=== PATIENT | male | born 2000 | race Caucasian/White ===

== ENCOUNTER 2019-05-09 16:52 | Emergency (ER) | payer OTHER, SELFPAY ==
[2019-05-09 17:15] VITALS: BP 156/82; PULSE 104; RESP 16; TEMP 37.1; O2SAT 96; BMI 26.3
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
--- NOTE | 2019-05-09 17:32 | XR_ITS ---
WS: [id number] RIGHT KNEE: 3 VIEW(S) TECHNIQUE: AP, oblique(s) and lateral. HISTORY: pain COMPARISON: None available. No fracture or dislocation. No joint space narrowing or osteophytes. No joint effusion. No soft tissue abnormality. XR/XR knee RT 3V* [id number] IMPRESSION: Normal RIGHT knee.
[2019-05-09 18:45] VITALS: BP 139/83; PULSE 75; RESP 16
--- NOTE | 2019-05-11 13:46 | DCPLANNER ---
field care manager had message to schedule a follow up appointment for patient with ortho. field care manager called the ortho clinic, spoke with Pat, gave clinic patients information. field care manager was told that patients information would be printed and reviewed. Clinic will call correctional counselor/case manager and patient with appointment information.
--- NOTE | 2019-05-13 11:03 | DCPLANNER ---
Patient had an appointment scheduled for 05.11.19 with ortho, patient did attend the appointment.
== END 2019-05-09 18:49 | disposition home or self-care (01) ==
PROVIDERS: Emergency Provider Emergency Medicine; Family Provider Physician Assistant
DX: S86.911A Strain of unspecified muscle(s) and tendon(s) at lower leg level, right leg, initial encounter (principal); S30.810A Abrasion of lower back and pelvis, initial encounter; V86.99XA Unspecified occupant of other special all-terrain or other off-road motor vehicle injured in nontraffic accident, initial encounter
CPT/HCPCS: 29530; 73562; 99283; E0114

== ENCOUNTER 2019-06-02 16:28 | Outpatient (CLI) | payer OTHER, SELFPAY ==
--- NOTE | 2019-06-02 16:45 | MR_ITS ---
WS: [id number] MRI RIGHT KNEE NONCONTRAST TECHNIQUE: Axial PD, coronal PD fat sat, coronal PD, sagittal PD, and sagittal PD fat-sat images obta ined. CLINICAL INFORMATION: Pain COMPARISON: None. FINDINGS: Some images degraded by patient motion. Irregularity with T2 signal abnormality involving the anterior cruciate ligament with partial intrasu bstance tear. Some normal fibers are visualized intact. T2 signal abnormality worse involving the dis seun tibial insertion. Posterior cruciate ligament is intact. Distal quadriceps and patella tendons ar e intact. Radial tear involving the posterior horn medial meniscus somewhat difficult to evaluate due to motion . This extends to the articular surface. T2 signal abnormality involving the medial collateral ligame nt with associated edema. MCL appears grossly intact. Findings consistent with partial intrasubstance tear and ligamentous injury. Normal lateral collateral ligament. Patella is normal in appearance. Normal patella cartilage. Normal popliteal fossa. MR/MR knee RT wo con* [id number] IMPRESSION: 1. Partial intrasubstance tear involving the ACL with signal abnormality worse along the distal insertion. 2. Normal posterior cruciate ligament. 3. Suggestion of tiny radial tear involving the posterior horn medial meniscus extending to the articular surface. Images degraded by motion in this area. 4. MCL ligamentous injury with intrasubstance partial tear and edema along the superficial and deep fibers. MCL is grossly intact.
== END 2019-06-02 16:29 | disposition home or self-care (01) ==
LOC: RADSHAW 16:33
PROVIDERS: Family Provider Physician Assistant; PCP Physician Assistant; Visit Provider Orthopaedic Surgery
DX: S83.421A Sprain of lateral collateral ligament of right knee, initial encounter (principal); X58.XXXA Exposure to other specified factors, initial encounter; M25.561 Pain in right knee
CPT/HCPCS: 73721

== ENCOUNTER 2019-12-06 02:07 | Emergency (ER) | payer OTHER, SELFPAY ==
[2019-12-06 02:20] VITALS: BP 126/69; PULSE 88; RESP 14; TEMP 36.9; O2SAT 98; BMI 27.1
--- NOTE | 2019-12-06 02:30 | ED_ITS ---
HPI - Abdominal Pain General: Chief Complaint: Abdominal Pain Stated Complaint: abd sharp pain for about a week Time Seen by Provider: 12/06/19 02:26 Source: patient Mode of arrival: ambulatory Limitations: no limitations History of Present Illness: HPI narrative: Isaiah is a 19-year-old male who comes in complaining of 1 weeks history of upper abdominal pain. He states the pain is all across the upper half of his upper abdomen. It is been intermittent in nature but waxing and waning over the past week. He said associated nausea but has not vomited. He denies any diarrhea or constipation. Patient states sometimes physically exerting himself makes things worse and rest makes it better. He does not describe any chest pain or shortness of breath. Patient has not had any fevers or chills. He does not describe any urinary symptoms. Associated Symptoms: Denies chills, coffee ground emesis, constipation, GI cramping, diarrhea, dysuria, fever(s), heartburn, hematochezia, hematuria, hematemesis, melena, syncope and vomiting Review of Systems Const: Denies: fever(s), chills, body aches, fatigue, malaise or diaphoresis Eyes: Denies: change in vision, blurry vision, photophobia, eye discomfort, eye discharge, eye redness or yellow eyes ENMT: Denies: throat pain, odynophagia, hoarseness, swelling of lips/tongue, ear or mastoid pain, ear discharge, change in hearing or nasal discharge Card: Denies: chest pain, palpitations, irregular heart rhythm, edema, lightheadedness, syncope, pre-syncope, dyspnea on exertion or orthopnea Resp: Denies: dyspnea, productive cough, non-productive cough, wheezing, hemoptysis or chest congestion GI: Reports: abdominal pain; Denies: vomiting, hematemesis, coffee ground emesis, heartburn, diarrhea, constipation, GI cramping, hematochezia or melena : Denies: flank pain, dysuria, urinary frequency, urinary urgency or hematuria Musc: Denies: neck pain, back pain, extremity pain, extremity swelling, joint pain, joint swelling, joint redness, joint warmth or joint stiffness Skin/Breast: Denies: rash, pruritus, erythema, skin pain or skin tenderness Neuro: Denies: headache(s), numbness in extremities, weakness in extremities, sensory changes, lack of coordination, difficulty walking, dizziness, vertigo, confusion, Slurred speech present or seizure-like activity Mariano/Lymph: Denies: easy bruising, easy bleeding, petechiae, purpura or enlarged lymph nodes All/Imm: Denies: urticaria, throat swelling, tongue swelling, facial swelling or acute wheezing PFSH ED PFSH: Medical History (Updated 12/06/19 @ 04:06 by Lou Wick) Migraines Surgical History (Updated 12/06/19 @ 02:33 by Lou Wick) S/P cholecystectomy Social History Smoking and tobacco status: never smoked Physical Exam Const: COMMON NORMALS: no acute distress, patient oriented x3, no limitations and alert GENERAL APPEARANCE: cooperative HENMT: COMMON NORMALS: normocephalic, atraumatic, external ears normal, EAC's normal and Normal external nose present HEAD & SCALP: normal to inspection, normocephalic and atraumatic FACE & SINUS: normal facial exam and face symmetric NOSE: Normal external nose present and Normal nares present EXTERNAL EAR: Yes external ears normal EXTERNAL AUDITORY CANAL: EAC's normal MOUTH: Normal oral and palatal mucosa present, lip normal and tongue normal Eye: COMMON NORMALS: Equal, round and reactive pupils present and conjunctivae normal GENERAL EYE: appearance normal, both eyes and all related structures ALIGNMENT: Yes alignment normal PERIORBITAL: periorbital findings normal EYELID: eyelids normal CONJUNCTIVA: Yes conjunctivae normal SCLERA: sclerae normal PUPIL: Yes Equal, round and reactive pupils present Neck/C-Spine: COMMON NORMALS: full ROM, no lymphadenopathy, supple, no meningeal signs and no JVD GENERAL: Yes normal visual inspection and Yes trachea midline Chest: COMMONS NORMALS: normal inspection of the chest and normal palpation of entire chest wall Resp: COMMON NORMALS: normal respiratory effort, No retractions, No use of accessory muscles and clear to auscultation bilaterally EFFORT & INSPECTION: Yes able to speak in complete sentences and Yes symmetric chest movement AUSCULTATION: clear to auscultation bilaterally, no crackles, no rales, no rhonchi and no wheezes Cardio: COMMON NORMALS: no JVD, regular rate, regular rhythm, S1 normal heart sound present and S2 normal heart sound present RATE: regular rate RHYTHM: regular rhythm HEART SOUNDS: S1 normal heart sound present, S2 normal heart sound present, no click, no gallops, no murmurs and no rubs GI: COMMON NORMALS: Soft to palpation and No hepatosplenomegaly present PALPATION: Yes Soft to palpation, No Tenderness to palpation present (GI), No Guarding due to palpation present (GI), No Rigid due to palpation, Yes No hepatosplenomegaly present, No Hernia present, No Palpable mass present and No Pulsatile mass present : COMMON NORMALS: Yes no CVA tenderness BLADDER/KIDNEY EXAM: Yes no CVA t enderness Back/Pelvis: COMMON NORMALS: no CVA tenderness, thoracic and lumbar spine normal to inspection, no thoracic nor lumbar tenderness and thoraco-lumbar ROM normal Extremity: COMMON NORMALS: normal to inspection, full ROM, capillary refill normal, no joint enlargement, no clubbing, cyanosis or edema and no calf tenderness Neuro: COMMON NORMALS: patient oriented x3, CN's II-XII intact bilaterally, moves all extremities, no focal motor deficits and no sensory deficits noted SENSORIUM/ORIENTATION: Yes alert MENINGEAL SIGNS: Yes no meningeal signs SPEECH: speech normal Psych: COMMON NORMALS: mental status grossly normal, Normal thought process p resent, cooperative, normal affect, speech normal and activity/motor behavior normal SPEECH: Yes normal speech THOUGHT PROCESS: Normal thought process present Skin: COMMON NORMALS: no rashes or lesions noted, turgor normal, no jaundice, no petechiae and no mottling GENERAL SKIN EXAM: no rashes or lesions noted and turgor normal Course Vital Signs: Vital signs: Vital Signs Temperature 98.4 F 12/06/19 02:20 Pulse Rate 98 12/06/19 03:36 Respiratory Rate 14 12/06/19 03:36 Blood Pressure 132/88 12/06/19 03:36 Pulse Oximetry 98 12/06/19 03:36 MDM - Abdominal Pain MDM Narrative: Medical decision making narrative: 403 -patient is feeling better and is ready to go home. CT scan is unremarkable as well as his lab work. He may have a mild case of mesenteric adenitis. This time though he is ready to go. If his urinalysis comes back normal I will discharge him home. Lab Data: Attestation: I reviewed the patient's lab results. Labs: Lab Results 12/06/19 12/06/19 12/06/19 Range/Units 02:36 02:36 02:36 WBC 6.9 (4.5-13.0) 10^3/ uL RBC 5.62 H (4.1-5.3) 10^6/u L Hgb 15.5 (11.7-16.6) g/dL Hct 46.5 (42.0-52.0) % MCV 82.7 (80-94) fL MCH 27.6 L (28.0-34.0) pg MCHC 33.3 (30.0-36.0) g/dL RDW 11.9 L (12.1-15.1) % Plt Count 263 (130-400) 10^3/c mm MPV 10.2 (7.4-10.4) fL Neut % (Auto) 39.3 % Lymph % (Auto) 38.5 % Arroyo % (Auto) 9.8 % Eos % (Auto) 11.5 % Baso % (Auto) 0.6 % Neut # (Auto) 2.69 (1.8-8.0) 10^3/u L Lymph # (Auto) 2.6 (1.5-6.5) 10^3/u L Arroyo # (Auto) 0.7 (0.2-0.9) 10^3/u L Eos # (Auto) 0.8 (0.0-0.8) 10^3/u L Baso # (Auto) 0.0 (0.0-0.1) 10^3/u L Nucleated RBC % (a uto) 0 % Nucleated RBCs # 0.0 /100WBC Sodium 140 (136-145) mmol/L Potassium 3.9 (3.5-5.1) mmol/L Chloride 103 (98-107) mmol/L Carbon Dioxide 25 (22-29) mmol/L Anion Gap 15.9 (5-19) BUN 12 (6-20) mg/dL Creatinine 0.7 (0.7-1.2) mg/dL GFR Calculation 143.8 H (90-130) mL/min Glucose 97 (65-115) mg/dL Calculated Osmolal ity 286 (285-295) mOsm/k g Calcium 9.9 (8.5-10.5) mg/dL Total Bilirubin 0.3 (0.15-1.2) mg/dL AST 22 (0-40) U/L ALT 27 (0-41) U/L Alkaline Phosphata se 114 (40-130) IU/L Total Protein 7.3 (6.6-8.7) g/dL Albumin 4.5 (3.5-5.2) g/dL Globulin 2.8 (1.3-4.6) g/dL Lipase 23 (13-60) U/L H. pylori IgG Anti body Negative (Negative) Imaging Data ^: CT Abd/Pel: Radiologist's impression: [place] [address] CT Scan Report Signed Patient: Abbie More #: [id number] : 2000Acct#:[id number] Age/Sex: 19 / MADM Date: 12/06/19 Loc: ERRoom/Bed: Attending Dr: Ordering Provider/Ordering MD: Lou Wick DO Date of Service: 12/06/19 Procedure(s): CT abdomen pelvis w con* [id number] Accession Number(s): [id number] Report Number: [id number] PROCEDURE INFORMATION: Exam: CT Abdomen And Pelvis With Contrast Exam date and time: 12/06/2019 2:57 AM Age: 19 years old Clinical indication: Abdominal pain; Prior surgery; Surgery date: 6+ months; Surgery type: Gallbladder; Patient HX: Epigastric pain x 1 wk TECHNIQUE: Imaging protocol: Computed tomography of the abdomen and pelvis with intravenous contrast. Radiation optimization: All CT scans at this facility use at least one of these dose optimization techniques: automated exposure control; mA and/or kV adjustment per patient size (includes targeted exams where dose is matched to clinical indication); or iterative reconstruction. Contrast material: OMNIPAQUE 300; Contrast volume: 95 ml; Contrast route: INTRAVENOUS (IV); COMPARISON: No relevant prior studies available. RADIATION DOSE METRICS: Total DLP (mGy-cm): 970.9 FINDINGS: Liver: Unremarkable liver. Gallbladder and bile ducts: Cholecystectomy. No biliary ductal dilatation. Pancreas: Unremarkable pancreas. Spleen: No splenomegaly. Adrenals: No mass. Kidneys and ureters: 5 mm focus of decreased density in the margin of the left upper renal pole. No hydronephrosis. Stomach and bowel: Unremarkable. No obstruction. No apparent mucosal thickening. Appendix: Normal appendix. Intraperitoneal space: No free air. Vasculature: Unremarkable. No abdominal aortic aneurysm. Lymph nodes: Numerous slightly prominent mesenteric nodes. No enlarged nodes elsewhere. Bladder: Unremarkable as visualized. Reproductive: Unremarkable as visualized. Bones/joints: Old slight compression fractures. Degeneration of several discs. Soft tissues: Minimal left inguinal hernia containing fat. CT/CT abdomen pelvis w con* [id number] IMPRESSION: Prominent mesenteric nodes, significance unclear. No acute findings elsewhere. Other findings detailed above. Radiation Dose CTDIVOL = (mGy): DLP = 970.9 (mGy-cm) Dictated By:Jen Shaffer MD Signed By:Jen Shafferigned Date/Time:12/06/19356 DD/ 4 Discharge Plan Discharge Patient Disposition: Home Clinical Impression: Nonspecific mesenteric adenitis Abdominal pain Qualifiers: Abdominal location: upper abdomen, unspecified Qualified Code(s): R10.10 - Upper abdominal pain, unspecified Condition: Stable Prescriptions: No Action ondansetron HCl 4 mg tablet 4 mg PO PRN RF: 0 Protein Nutritional Shake Liquid 1 ea PO DAILY RF: 0 Symbicort 160-4.5 mcg/actuation HFA aerosol inhaler 2 puff INHALATION BID RF: 0 Pre-Workout Shakes See Rx Instructions .ROUTE .COMPLEX RF: 0 Discharge Orders: Discharge Order (Routine); Ordered 12/06/19 Ordered By: Lou Wick Referrals: Yu Benavides PA [Primary Care Provider] - 1-3 days Discharge Diet: Advance as tolerated Discharge Activity: Increase activity as tolerated Patient Instructions: Abdominal Pain (ED) Activity Restrictions/Additional Instructions: Please return to the ER immediately for any of the signs or symptoms listed on your discharge instruction sheets, worsening/changing of your symptoms, you are not getting better as quickly as expected, or for ANY other cause or concerns. If your abdominal pain persists beyond another 8 to 12 hours please return to the ER for recheck. Return sooner if your pain worsens, he develop a fever, he develop vomiting, or for any other cause for concern. Be certain to follow-up with Yu Benavides for recheck this week. Coding Level of Care Code ED Freezing Room Worker for Chg Fwd Exam Comprehensive
[2019-12-06 02:49] VITALS: RESP 16; O2SAT 97
[2019-12-06] MEDS: pantoprazole 40 mg SDV 80 MG IVP (02:49)
[2019-12-06] MEDS: morphine 4 mg/mL SDV 1 mL IVP (02:49)
[2019-12-06] MEDS: ondansetron 2 mg/ML SDV 2 mL 4 MG IVP (02:50)
[2019-12-06 03:01] VITALS: BP 113/73; PULSE 74; RESP 16; O2SAT 98
[2019-12-06 03:17] LABS: Basophils % 0.6 %; Eosinophils # 0.8 10^3/uL (0.0-0.8); Eosinophils % 11.5 %; Hematocrit 46.5 % (42.0-52.0); Hemoglobin 15.5 g/dL (11.7-16.6); Lymphocytes # 2.6 10^3/uL (1.5-6.5); Lymphocytes % 38.5 %; Mean Corpuscular HGB Conc 33.3 g/dL (30.0-36.0); Mean Corpuscular Hemoglobin 27.6 pg (28.0-34.0); Mean Corpuscular Volume 82.7 fL (80-94); Mean Platelet Volume 10.2 fL (7.4-10.4); Monocytes # 0.7 10^3/uL (0.2-0.9); Monocytes % 9.8 %; Neutrophils # 2.69 10^3/uL (1.8-8.0); Neutrophils % 39.3 %; Nucleated Red Blood Cells % 0 %; Platelet Count 263 10^3/cmm (130-400); Red Blood Count 5.62 10^6/uL (4.1-5.3); Red Cell Distribution Width 11.9 % (12.1-15.1); White Blood Count 6.9 10^3/uL (4.5-13.0)
[2019-12-06] MEDS: iohexol 300 mg/mL 100 mL Btl IV (03:25)
[2019-12-06 03:30] LABS: Alanine Aminotransferase 27 U/L (0-41); Albumin Level 4.5 g/dL (3.5-5.2); Alkaline Phosphatase 114 IU/L (40-130); Anion Gap 15.9 (5-19); Aspartate Amino Transferase 22 U/L (0-40); Blood Urea Nitrogen 12 mg/dL (6-20); Calcium 9.9 mg/dL (8.5-10.5); Carbon Dioxide 25 mmol/L (22-29); Chloride 103 mmol/L (98-107); Globulin 2.8 g/dL (1.3-4.6); Glomerular Filtration Rate 143.8 mL/min (90-130); Glucose 97 mg/dL (65-115); Lipase 23 U/L (13-60); Osmolality Calculated 286 mOsm/kg (285-295); Potassium 3.9 mmol/L (3.5-5.1); Sodium 140 mmol/L (136-145); Total Bilirubin 0.3 mg/dL (0.15-1.2); Total Protein 7.3 g/dL (6.6-8.7)
[2019-12-06 03:32] LABS: H. Pylori IgG Antibody Negative (Negative)
[2019-12-06 03:36] VITALS: BP 132/88; PULSE 98; RESP 14; O2SAT 98
[2019-12-06 04:39] LABS: Add Urine Microscopic? NO
[2019-12-06 04:44] LABS: Bilirubin Urine Neg (Negative); Blood Urine Neg (Negative); Glucose Urine UA Norm (Normal); Ketones Urine Negative (Negative); Leukocyte Esterase Urine Negative (Negative); Nitrate Urine Negative (Negative); Protein Urine Neg (Negative); Urine Appearance Clear (CLEAR); Urine Color Yellow (Yellow); Urobilinogen Urine Norm (Negative); pH Urine 5 (5-7)
[2019-12-06 04:56] VITALS: BP 102/58; PULSE 72; RESP 18; O2SAT 99
== END 2019-12-06 04:58 | disposition home or self-care (01) ==
PROVIDERS: Physician Assistant; Emergency Provider Emergency Medicine; PCP Physician Assistant
DX: I88.0 Nonspecific mesenteric lymphadenitis (principal)
CPT/HCPCS: 12345; 74177; 80053; 81003; 83690; 85025; 86677; 96374; 96375; 99283; C9113; J2270; J2405; Q9967

== ENCOUNTER → 2019-12-09 07:21 | Outpatient (BNVA) | payer OTHER, SELFPAY | PROVIDERS: PCP Physician Assistant; Visit Provider Nurse Practitioner Family | DX: Z11.59 Encounter for screening for other viral diseases (principal) | CPT/HCPCS: 87635 ==

== ENCOUNTER 2019-12-24 01:50 | Emergency (ER) | payer OTHER, SELFPAY ==
[2019-12-24 01:59] VITALS: BP 136/84; PULSE 98; RESP 16; TEMP 36.3; O2SAT 98; BMI 28.5
[2019-12-24 02:09] VITALS: BP 157/86; PULSE 104; RESP 18; O2SAT 98
--- NOTE | 2019-12-24 02:11 | ED_ITS ---
HPI - Abdominal Pain General: Chief Complaint: Abdominal Pain Stated Complaint: ab pain, severe Time Seen by Provider: 12/24/19 02:05 Source: patient Mode of arrival: ambulatory Limitations: no limitations History of Present Illness: HPI narrative: Isaiah is a nice 19-year-old male who comes in complaining of intermittent abdominal pain for the past 4 weeks. He describes the pain is diffuse throughout his abdomen and will come and go intermittently and when present will wax and wane in intensity. He is unaware of any exacerbating factors but he does feel better at times when he sits up and worse when he lays down. Occasionally the pain will feel like it radiates to his back. He has nausea but no vomiting. He denies any change in his bowel habits such as diarrhea or constipation. Patient denies any urinary symptoms such as urinary frequency, urgency or dysuria. Patient not have any fevers or chills. Patient states he was seen for this same symptoms here in the ER approximately 4 weeks ago and was told he had gastroenteritis. Associated Symptoms: Reports nausea; Denies chills, coffee ground emesis, constipation, GI cramping, diarrhea, dysuria, fever(s), heartburn, hematochezia, hematuria, hematemesis, melena, syncope and vomiting Review of Systems Const: Denies: fever(s), chills, body aches, fatigue, malaise or diaphoresis Eyes: Denies: change in vision, blurry vision, photophobia, eye discomfort, eye discharge, eye redness or yellow eyes ENMT: Denies: throat pain, odynophagia, hoarseness, swelling of lips/tongue, ear or mastoid pain, ear discharge, change in hearing or nasal discharge Card: Denies: chest pain, palpitations, irregular heart rhythm, edema, lightheadedness, syncope, pre-syncope, dyspnea on exertion or orthopnea Resp: Denies: dyspnea, productive cough, non-productive cough, wheezing, hemoptysis or chest congestion GI: Reports: abdominal pain and nausea; Denies: vomiting, hematemesis, coffee ground emesis, heartburn, diarrhea, constipation, GI cramping, hematochezia or melena : Denies: flank pain, dysuria, urinary frequency, urinary urgency or hematuria Musc: Denies: neck pain, back pain, extremity pain, extremity swelling, joint pain, joint swelling, joint redness, joint warmth or joint stiffness Skin/Breast: Denies: rash, pruritus, erythema, skin pain or skin tenderness Neuro: Denies: headache(s), numbness in extremities, weakness in extremities, sensory changes, lack of coordination, difficulty walking, dizziness, vertigo, confusion, Slurred speech present or seizure-like activity Mariano/Lymph: Denies: easy bruising, easy bleeding, petechiae, purpura or enlarged lymph nodes All/Imm: Denies: urticaria, throat swelling, tongue swelling, facial swelling or acute wheezing PFSH ED PFSH: Medical History Migraines Surgical History S/P cholecystectomy Social History Smoking and tobacco status: never smoked Physical Exam Const: COMMON NORMALS: no acute distress, patient oriented x3, no limitations and alert GENERAL APPEARANCE: cooperative HENMT: COMMON NORMALS: normocephalic, atraumatic, external ears normal, EAC's normal and Normal external nose present HEAD & SCALP: normal to inspection, normocephalic and atraumatic FACE & SINUS: normal facial exam and face symmetric NOSE: Normal external nose present and Normal nares present EXTERNAL EAR: Yes external ears normal EXTERNAL AUDITORY CANAL: EAC's normal MOUTH: Normal oral and palatal mucosa present, lip normal and tongue normal Eye: COMMON NORMALS: Equal, round and reactive pupils present and conjunctivae normal GENERAL EYE: appearance normal, both eyes and all related structures ALIGNMENT: Yes alignment normal PERIORBITAL: periorbital findings normal EYELID: eyelids normal CONJUNCTIVA: Yes conjunctivae normal SCLERA: sclerae normal PUPIL: Yes Equal, round and reactive pupils present Neck/C-Spine: COMMON NORMALS: full ROM, no lymphadenopathy, supple, no meningeal signs and no JVD GENERAL: Yes normal visual inspection and Yes trachea midline Chest: COMMONS NORMALS: normal inspection of the chest and normal palpation of entire chest wall Resp: COMMON NORMALS: normal respiratory effort, No retractions, No use of accessory muscles and clear to auscultation bilaterally EFFORT & INSPECTION: Yes able to speak in complete sentences and Yes symmetric chest movement AUSCULTATION: clear to auscultation bilaterally, no crackles, no rales, no rhonchi and no wheezes Cardio: COMMON NORMALS: no JVD, regular rate, regular rhythm, S1 normal heart sound present and S2 normal heart sound present RATE: regular rate RHYTHM: regular rhythm HEART SOUNDS: S1 normal heart sound present, S2 normal heart sound present, no click, no gallops, no murmurs and no rubs GI: COMMON NORMALS: Soft to palpation and No hepatosplenomegaly present PALPATION: Yes Soft to palpation, Yes Tenderness to palpation present (GI) (Mild diffusely without rebound or guarding), No Guarding due to palpation present (GI), No Rigid due to palpation, Yes No hepatosplenomegaly present, No Hernia present, No Palpable mass present and No Pulsatile mass present : COMMON NORMALS: Yes no CVA tenderness BLADDER/KIDNEY EXAM: Yes no CVA tenderness Back/Pelvis: COMMON NORMALS: no CVA tenderness, thoracic and lumbar spine normal to inspection, no thoracic nor lumbar tenderness and thoraco-lumbar ROM normal Extremity: COMMON NORMALS: normal to inspection, full ROM, capillary refill normal, no joint enlargement, no clubbing, cyanosis or edema and no calf tenderness Neuro: COMMON NORMALS: patient oriented x3, CN's II-XII intact bilaterally, moves all extremities, no focal motor deficits and no sensory deficits noted SENSORIUM/ORIENTATION: Yes alert MENINGEAL SIGNS: Yes no meningeal signs SPEECH: speech normal Psych: COMMON NORMALS: mental status grossly normal, Normal thought process present, cooperative, normal affect, speech normal and activity/motor behavior normal SPEECH: Yes normal speech THOUGHT PROCESS: Normal thought process present Skin: COMMON NORMALS: no rashes or lesions noted, turgor normal, no jaundice, no petechiae and no mottling GENERAL SKIN EXAM: no rashes or lesions noted and turgor normal Course Vital Signs: Vital signs: Vital Signs Temperature 97.3 F L 12/24/19 01:59 Pulse Rate 96 12/24/19 03:22 Respiratory Rate 18 12/24/19 03:22 Blood Pressure 136/73 12/24/19 03:22 Pulse Oximetry 96 12/24/19 03:22 MDM - Abdominal Pain MDM Narrative: Medical decision making narrative: Patient comes in complaining of abdominal pain that is becoming somewhat chronic in nature. Tonight he now relates that he is specifically concerned about intussusception. Apparently a family member had a child that recently had complications from intussusception and . He feels relieved to know that he does not have this. I see no sign or symptom of this clinically and a CT scan has ruled this out. Patient agrees to follow-up with surgeon as outpatient for his ongoing abdominal pain or return here if her symptoms worsen. Differential Diagnosis: Differential diagnosis abdominal pain: Likely abdominal pain, acute appendicitis, calculus of kidney, diverticulitis, gastroenteritis, pancreatitis and small bowel obstruction Medical Records: Attestation: I reviewed the patient's medical records. Medical records narrative: Previous ER visit Lab Data: Attestation: I reviewed the patient's lab results. Labs: Lab Results 12/24/19 12/24/19 12/24/19 Range/Units 02:15 02:15 02:15 WBC 7.8 (4.5-13.0) 10^3/ uL RBC 5.74 H (4.1-5.3) 10^6/u L Hgb 15.6 (11.7-16.6) g/dL Hct 47.5 (42.0-52.0) % MCV 82.8 (80-94) fL MCH 27.2 L (28.0-34.0) pg MCHC 32.8 (30.0-36.0) g/dL RDW 12.3 (12.1-15.1) % Plt Count 307 (130-400) 10^3/c mm MPV 9.8 (7.4-10.4) fL Neut % (Auto) 38.0 % Lymph % (Auto) 42.0 % [place] % (Auto) 9.6 % Eos % (Auto) 9.5 % Baso % (Auto) 0.6 % Neut # (Auto) 2.98 (1.8-8.0) 10^3/u L Lymph # (Auto) 3.3 (1.5-6.5) 10^3/u L [place] # (Auto) 0.8 (0.2-0.9) 10^3/u L Eos # (Auto) 0.7 (0.0-0.8) 10^3/u L Baso # (Auto) 0.1 (0.0-0.1) 10^3/u L Nucleated RBC % (a uto) 0 % Nucleated RBCs # 0.0 /100WBC Sodium 138 (136-145) mmol/L Potassium 3.5 (3.5-5.1) mmol/L Chloride 100 (98-107) mmol/L Carbon Dioxide 28 (22-29) mmol/L Anion Gap 13.5 (5-19) BUN 10 (6-20) mg/dL Creatinine 0.8 (0.7-1.2) mg/dL GFR Calculation 123.2 (90-130) mL/min Glucose 115 (65-115) mg/dL Calculated Osmolal ity 286 (285-295) mOsm/k g Calcium 9.4 (8.5-10.5) mg/dL Total Bilirubin 0.3 (0.15-1.2) mg/dL AST 23 (0-40) U/L ALT 32 (0-41) U/L Alkaline Phosphata se 155 H (40-130) IU/L Total Protein 7.4 (6.6-8.7) g/dL Albumin 4.4 (3.5-5.2) g/dL Globulin 3.0 (1.3-4.6) g/dL Lipase 22 (13-60) U/L Urine Color (Yellow) Urine Appearance (CLEAR) Urine pH (5-7) Ur Specific Gravit y (1.005-1.030) Urine Protein (Negative) Urine Glucose (UA) (Normal) Urine Ketones (Negative) Urine Blood (Negative) Urine Nitrate (Negative) Urine Bilirubin (Negative) Urine Urobilinogen (Negative) mg/dL Ur Leukocyte Latrice ase (Negative) H. pylori IgG Anti body Negative (Negative) 12/24/19 Range/Units 02:17 WBC (4.5-13.0) 10^3/ uL RBC (4.1-5.3) 10^6/u L Hgb (11.7-16.6) g/dL Hct (42.0-52.0) % MCV (80-94) fL MCH (28.0-34.0) pg MCHC (30.0-36.0) g/dL RDW (12.1-15.1) % Plt Count (130-400) 10^3/c mm MPV (7.4-10.4) fL Neut % (Auto) % Lymph % (Auto) % [place] % (Auto) % Eos % (Auto) % Baso % (Auto) % Neut # (Auto) (1.8-8.0) 10^3/u L Lymph # (Auto) (1.5-6.5) 10^3/u L [place] # (Auto) (0.2-0.9) 10^3/u L Eos # (Auto) (0.0-0.8) 10^3/u L Baso # (Auto) (0.0-0.1) 10^3/u L Nucleated RBC % (a uto) % Nucleated RBCs # /100WBC Sodium (136-145) mmol/L Potassium (3.5-5.1) mmol/L Chloride (98-107) mmol/L Carbon Dioxide (22-29) mmol/L Anion Gap (5-19) BUN (6-20) mg/dL Creatinine (0.7-1.2) mg/dL GFR Calculation (90-130) mL/min Glucose (65-115) mg/dL Calculated Osmolal ity (285-295) mOsm/k g Calcium (8.5-10.5) mg/dL Total Bilirubin (0.15-1.2) mg/dL AST (0-40) U/L ALT (0-41) U/L Alkaline Phosphata se (40-130) IU/L Total Protein (6.6-8.7) g/dL Albumin (3.5-5.2) g/dL Globulin (1.3-4.6) g/dL Lipase (13-60) U/L Urine Color Yellow (Yellow) Urine Appearance Clear (CLEAR) Urine pH 6 (5-7) Ur Specific Gravit y 1.020 (1.005-1.030) Urine Protein Neg (Negative) Urine Glucose (UA) Norm (Normal) Urine Ketones Negative (Negative) Urine Blood Neg (Negative) Urine Nitrate Negative (Negative) Urine Bilirubin Neg (Negative) Urine Urobilinogen Norm (Negative) mg/dL Ur Leukocyte Latrice ase Negative (Negative) H. pylori IgG Anti body (Negative) Imaging Data ^: CT Abd/Pel: Radiologist's impression: [address] [place] [address] CT Scan Report Signed Patient: Isaiah More Unit #: [id number] : 2000 Age/Sex: 19 / M ADM Date: 12/24/19 Loc: ER Room/Bed: Attending Dr: Ordering Provider/Ordering MD: Lou Wick DO Date of Service: 12/24/19 Procedure(s): CT abdomen pelvis w con* [id number] Accession Number(s): [id number] Report Number: [id number] PROCEDURE INFORMATION: Exam: CT Abdomen And Pelvis With Contrast Exam date and time: 12/24/2019 2:18 AM Age: 19 years old Clinical indication: Abdominal pain; Generalized; Prior surgery; Surgery type: Cholecystectomy TECHNIQUE: Imaging protocol: Computed tomography of the abdomen and pelvis with intravenous contrast. Radiation optimization: All CT scans at this facility use at least one of these dose optimization techniques: automated exposure control; mA and/or kV adjustment per patient size (includes targeted exams where dose is matched to clinical indication); or iterative reconstruction. Contrast material: OMNI 300; Contrast volume: 95 ml; Contrast route: INTRAVENOUS (IV); COMPARISON: CT abdomen pelvis w con* [id number] 12/06/2019 3:12 AM RADIATION DOSE METRICS: Total DLP (mGy-cm): 1227.28 FINDINGS: Liver: Normal. No mass. Gallbladder and bile ducts: Status post cholecystectomy. Pancreas: Normal. No ductal dilation. Spleen: Normal. No splenomegaly. Adrenals: Normal. No mass. Kidneys and ureters: Normal. No hydronephrosis. Stomach and bowel: Unremarkable. No obstruction. No mucosal thickening. Appendix: The appendix is not seen in today's examination. There are no inflammatory changes seen to suggest appendicitis. Intraperitoneal space: Unremarkable. No free air. No significant fluid collection. Vasculature: Unremarkable. No abdominal aortic aneurysm. Lymph nodes: Unremarkable. No enlarged lymph nodes. Urinary bladder: Unremarkable as visualized. Reproductive: Unremarkable as visualized. Bones/joints: Unremarkable. No acute fracture. Soft tissues: Unremarkable. CT/CT abdomen pelvis w con* [id number] IMPRESSION: There are no acute abdominal findings. Radiation Dose CTDIVOL = (mGy): DLP = 1227.28 (mGy-cm) Dictated By: Gabriele Kay MD Signed By: Gabriele Kay MD Signed Date/Time: 12/24/19313 DD/ 1 Discharge Plan Discharge Patient Disposition: Home Clinical Impression: Abdominal pain Qualifiers: Abdominal location: generalized Qualified Code(s): R10.84 - Generalized abdominal pain Condition: Stable Prescriptions: No Action Proair Digihaler 90 mcg/actuation aero powdr breath act w/sensor 2 inh INHALATION Q6H RF: 0 Symbicort 160-4.5 mcg/actuation HFA aerosol inhaler 2 puff INHALATION BID RF: 0 Discharge Orders: Discharge Order (Routine); Ordered 12/24/19 Ordered By: Lou Wick Referrals: Lou Wick [Emergency Provider] - Lavell Peters MD [Physician] - 1-3 days Yu Benavides PA [Primary Care Provider] - 1-3 days Discharge Diet: Advance as tolerated Discharge Activity: Increase activity as tolerated Patient Instructions: Abdominal Pain (ED) Activity Restrictions/Additional Instructions: Please return to the ER immediately for any of the signs or symptoms listed on your discharge instruction sheets, worsening/changing of your symptoms, you are not getting better as quickly as expected, or for ANY other cause or concerns. Be certain to follow-up with Dr. Peters or the surgeon of your choice for your ongoing abdominal pain. Return to the ER for worsening pain, fever, vomiting, diarrhea, or for any other cause for concern. Coding Level of Care Code ED Weight Control Engineer for [facility] Fwd Exam Comprehensive
[2019-12-24] MEDS: sodium chloride 0.9% 1,000 ML 100 ML IV (02:18)
[2019-12-24 02:19] LABS: Add Urine Microscopic? NO
[2019-12-24] MEDS: lidocaine 2% viscous 15 ML, aluminum-mag hydrox-simethicon 30 ML, sucralfate oral liq 1 GM PO (02:22)
[2019-12-24] MEDS: metoclopramide 5 mg/mL SDV 2 mL 10 MG IV (02:23)
[2019-12-24] MEDS: iohexol 300 mg/mL 100 mL Btl IV (02:36)
[2019-12-24 02:41] LABS: Basophils # 0.1 10^3/uL (0.0-0.1); Basophils % 0.6 %; Eosinophils # 0.7 10^3/uL (0.0-0.8); Eosinophils % 9.5 %; Hematocrit 47.5 % (42.0-52.0); Hemoglobin 15.6 g/dL (11.7-16.6); Lymphocytes # 3.3 10^3/uL (1.5-6.5); Mean Corpuscular HGB Conc 32.8 g/dL (30.0-36.0); Mean Corpuscular Hemoglobin 27.2 pg (28.0-34.0); Mean Corpuscular Volume 82.8 fL (80-94); Mean Platelet Volume 9.8 fL (7.4-10.4); Monocytes # 0.8 10^3/uL (0.2-0.9); Monocytes % 9.6 %; Neutrophils # 2.98 10^3/uL (1.8-8.0); Nucleated Red Blood Cells % 0 %; Platelet Count 307 10^3/cmm (130-400); Red Blood Count 5.74 10^6/uL (4.1-5.3); Red Cell Distribution Width 12.3 % (12.1-15.1); White Blood Count 7.8 10^3/uL (4.5-13.0)
[2019-12-24 02:41] LABS: Bilirubin Urine Neg (Negative); Blood Urine Neg (Negative); Glucose Urine UA Norm (Normal); Ketones Urine Negative (Negative); Leukocyte Esterase Urine Negative (Negative); Nitrate Urine Negative (Negative); Protein Urine Neg (Negative); Urine Appearance Clear (CLEAR); Urine Color Yellow (Yellow); Urobilinogen Urine Norm (Negative); pH Urine 6 (5-7)
[2019-12-24 02:46] VITALS: BP 127/70; PULSE 108; RESP 16; O2SAT 96
[2019-12-24 02:50] LABS: H. Pylori IgG Antibody Negative (Negative)
[2019-12-24 02:52] LABS: Alanine Aminotransferase 32 U/L (0-41); Albumin Level 4.4 g/dL (3.5-5.2); Alkaline Phosphatase 155 IU/L (40-130); Anion Gap 13.5 (5-19); Aspartate Amino Transferase 23 U/L (0-40); Blood Urea Nitrogen 10 mg/dL (6-20); Calcium 9.4 mg/dL (8.5-10.5); Carbon Dioxide 28 mmol/L (22-29); Chloride 100 mmol/L (98-107); Glomerular Filtration Rate 123.2 mL/min (90-130); Glucose 115 mg/dL (65-115); Lipase 22 U/L (13-60); Osmolality Calculated 286 mOsm/kg (285-295); Potassium 3.5 mmol/L (3.5-5.1); Sodium 138 mmol/L (136-145); Total Bilirubin 0.3 mg/dL (0.15-1.2); Total Protein 7.4 g/dL (6.6-8.7)
[2019-12-24 03:22] VITALS: BP 136/73; PULSE 96; RESP 18; O2SAT 96
--- NOTE | 2019-12-28 12:05 | DCPLANNER ---
nutrition services manager had message to schedule a follow up appointment for patient with general surgery. nutrition services manager called the [facility], spoke with Billie, gave clinic patients information. nutrition services manager was told that patients information would be printed and reviewed. Clinic will call patient with appointment information.
--- NOTE | 2020-01-04 15:25 | DCPLANNER ---
cost estimating manager called [facility] to confirm if patient had an appointment. cost estimating manager was told that when clinic called patient to schedule an appointment that patient declined appointment at this time.
== END 2019-12-24 03:36 | disposition home or self-care (01) ==
PROVIDERS: Emergency Provider Emergency Medicine; PCP Physician Assistant
DX: R10.84 Generalized abdominal pain (principal)
CPT/HCPCS: 12345; 74177; 80053; 81003; 83690; 85025; 86677; 96361; 96374; 99283; J2765; J7030; Q9967

== ENCOUNTER 2022-07-27 20:30 | Emergency (ER) | payer SELFPAY ==
[2022-07-27 20:35] VITALS: BP 109/83; PULSE 109; RESP 18; TEMP 36.8; O2SAT 99; BMI 31.1
--- NOTE | 2022-07-27 20:49 | XRR_ITS ---
PROCEDURE INFORMATION: Exam: XR Lumbosacral Spine Exam date and time: 07/27/2022 9:10 PM Age: 21 years old Clinical indication: Low back pain and sciatica; Left; Additional info: Injury with sciatica TECHNIQUE: Imaging protocol: Radiologic exam of the lumbosacral spine. Views: 2 or 3 views. COMPARISON: CT abdomen pelvis w con* [id number] 12/24/2019 2:28 AM FINDINGS: Bones/joints: Vertebral body heights are preserved. No compression fractures are noted. Vertebral alignment is physiologic. Spondylolisthesis or spondylolysis. Disc heights are preserved. No significant intervertebral disc narrowing. Soft tissues: Unremarkable. XR/XR lumbar spine 2-3V* [id number] IMPRESSION: No acute abnormality of the lumbar spine demonstrated.
[2022-07-27] MEDS: predniSONE 20 mg Tablet 60 MG PO (20:57)
[2022-07-27] MEDS: methocarbamol 750 mg Tablet PO (20:57)
[2022-07-27] MEDS: gabapentin 100 mg Capsule 200 MG PO (20:57)
--- NOTE | 2022-07-27 20:57 | ED_ITS ---
HPI - Back Pain/Injury General: Chief Complaint: Back Pain/Injury Stated Complaint: Back pain Time Seen by Provider: 07/27/22 20:43 History of Present Illness: 21-year-old male presents emergency department with his chief complaint of acute on chronic back pain patient reports on he has a known history of bulging disc in which on Friday he was attempting to do a pull in his front yard in which he felt a pop in his lower back he reports at that time he had increased pain and numbness going down his left leg he reports mild weakness noted to it he does not recall have any bowel or bladder incontinence or paresthesias in his perineum patient reports there is a considerable family history of back problems he is scheduled to be seen by specialist in this later this month patient presents to the ER because of his pain and numbness. Associated symptoms: Deny abdominal pain, chills, fatigue, fever(s), nausea or vomiting Review of Systems General: Reports: 10 or more systems reviewed and unremarkable except in HPI and below Const: Denies: fever(s), chills, fatigue or malaise Eyes: Denies: change in vision or blurry vision Card: Denies: chest pain or palpitations Resp: Denies: dyspnea or productive cough GI: Denies: abdominal pain, nausea or vomiting : Denies: flank pain Musc: Reports: back pain, extremity pain and other (Numbness and pain running down the leg) Skin/Breast: Denies: rash or pruritus Neuro: Denies: headache(s) Psych: Denies: anxiety or depression Mariano/Lymph: Denies: easy bleeding All/Imm: Denies: urticaria, throat swelling or facial swelling [facility] ED PFSH: Medical History (Updated 07/27/22 @ 21:48 by Rigoberto Chiu) Migraines Surgical History S/P cholecystectomy Social History Smoking and tobacco status: never smoked Physical Exam Const: COMMON NORMALS: no acute distress, patient oriented x3 and healthy appearing HENMT: COMMON NORMALS: normocephalic and atraumatic HEAD & SCALP: normocephalic and atraumatic Eye: COMMON NORMALS: Equal, round and reactive pupils present and EOMs intact bilaterally PUPIL: Yes Equal, round and reactive pupils present Neck/C-Spine: COMMON NORMALS: full ROM, supple and no JVD Lymph: LYMPHATIC: no lymphadenopathy noted Chest: COMMONS NORMALS: normal inspection of the chest and normal palpation of entire chest wall Resp: COMMON NORMALS: normal respiratory effort, No retractions and clear to auscultation bilaterally EFFORT & INSPECTION: Yes able to speak in complete sentences and Yes symmetric chest movement AUSCULTATION: clear to auscultation bilaterally Cardio: COMMON NORMALS: no JVD, regular rate and regular rhythm RATE: regular rate RHYTHM: regular rhythm GI: COMMON NORMALS: Normal to inspection, nondistended, normoactive bowel sounds present, Soft to palpation and non-tender INSPECTION: Yes normal to inspection PALPATION: Yes Soft to palpation : OTHER: Moderate pain located to the L2-L3 region primarily over the left lateral buttocks region positive spasm noted some subjective numbness rating on the left leg mild weakness appreciated left leg 4 out of 5 DTRs are intact bilaterally no obvious foot drop appreciated Neuro: COMMON NORMALS: patient oriented x3, CN's II-XII intact bilaterally, moves all extremities and no focal motor deficits Psych: COMMON NORMALS: mental status grossly normal, Normal thought process present, cooperative and normal affect THOUGHT PROCESS: Normal thought process present Skin: COMMON NORMALS: no rashes or lesions noted GENERAL SKIN EXAM: no rashes or lesions noted Course Vital Signs: Vital signs: Vital Signs Temperature 98.3 F 07/27/22 20:35 Pulse Rate 109 H 07/27/22 20:35 Respiratory Rate 18 07/27/22 20:35 Blood Pressure 109/83 07/27/22 20:35 Pulse Oximetry 99 07/27/22 20:35 Oxygen Delivery Me thod Room Air 07/27/22 20:35 MDM - Back Pain/Injury Medical Decision Making Due to patient's symptoms and condition x-ray imaging lumbar spine will be obtained patient be treated as a lumbar radiculopathy with sciatica we will continue to follow. Patient's x-ray imaging appears unremarkable no obvious spondylolisthesis or fractures appreciated will be treating the patient with medications for his associated symptoms advised for the follow-up primary care in 3 to 5 days patient does remark he already is scheduled to be seen by his doctor or specialist for his back I did advise the patient no bending at the waist or heavy lifting until cleared by his doctor advised patient if he develops any bowel or bladder issues or incontinence or numbness in the groin region to return immediately for further assessment and management. On current examination patient has no red flags for cauda equina. Labs Radiology Impressions Lumbar Spine X-Ray 07/27/22 20:49 IMPRESSION: No acute abnormality of the lumbar spine demonstrated. Discharge Plan Discharge Patient Disposition: Home Clinical Impression: Lumbar radiculopathy, Sciatica, Strain of lumbar region Condition: Stable Prescriptions: New prednisone 20 mg tablet 20 mg PO BID 5 Days Qty: 10 0RF Neurontin 100 mg capsule 100 mg PO Q8H Qty: 20 0RF methocarbamol 500 mg tablet 500 mg PO TID PRN (Reason: spasms) Qty: 20 0RF ketorolac 10 mg tablet 10 mg PO Q8H PRN (Reason: pain) Qty: 10 0RF No Action Proair Digihaler 90 mcg/actuation aero powdr breath act w/sensor 2 inh INHALATION Q6H Symbicort 160-4.5 mcg/actuation HFA aerosol inhaler 2 puff INHALATION BID Discharge Orders: Discharge ED (Routine); Ordered 07/27/22 Ordered By: Rigoberto Chiu Referrals: Yu Benavides PA [Primary Care Provider] - 1-3 days Discharge Diet: Advance as tolerated Discharge Activity: Increase activity as tolerated Patient Instructions: Sciatica (ED), Lumbar Radiculopathy (ED), Opioid Safety, Pain Management Activity Restrictions/Additional Instructions: Please further follow-up with primary care doctor in 3 to 5 days, please take medications as prescribed please return the interim if any of your symptoms persist or worse or if you develop any worsening symptoms such as weakness to be both your legs numbness to the groin region or incontinence symptoms as this could be a medical emergency. Coding Level of Care Code ED Rehabilitation Supervisor for Liz Holland
[2022-07-27] MEDS: ketorolac 60 mg/2 mL INJ IM (20:58)
== END 2022-07-27 22:33 | disposition home or self-care (01) ==
PROVIDERS: Emergency Provider Emergency Medicine; PCP Physician Assistant
DX: S39.012A Strain of muscle, fascia and tendon of lower back, initial encounter (principal); M54.30 Sciatica, unspecified side; M54.16 Radiculopathy, lumbar region; X50.9XXA Other and unspecified overexertion or strenuous movements or postures, initial encounter
CPT/HCPCS: 72100; 96372; 99284; J1885; J7512